=== PATIENT | female | born 1945 | race Caucasian/White ===

== ENCOUNTER → 2019-02-18 | Outpatient (CLI) | payer MEDICARE ==
[~2019-02-18] MED LIST: ALEN70TA3 PO; AMLO1CAP13 PO; ATOR10TA PO; HYDR12.58 PO; LEVO75TA PO
--- NOTE | 2019-02-18 12:02 | DIREP ---
PROCEDURE:XRAY SPINE LUMBAR 2-3 VWS COMPARISON:None. INDICATIONS:M54.5 LOW BACK PAIN TECHNIQUE:AP, lateral, and coned down lateral views of the lumbar spine are provided. FINDINGS: ALIGNMENT:Normal. VERTEBRAE:Preservation of vertebral body height. Bridging enthesophyte are seen involving the lower thoracic spine including T12 and L1. DISK SPACES:Normal. SPONDYLOLISTHESIS:None. SACROILIAC JOINTS:Mild to moderate left-sided degenerative SI joint changes. Mild degenerate facet changes of the lower lumbar spine.. OTHER:Normal. CONCLUSION:No fracture. Mild left-sided SI joint degenerative changes. Mild degenerate facet changes of the lower lumbar spine. There multiple large bridging enthesophyte of the lower thoracic spine and upper lumbar spine that may represent diffuse idiopathic skeletal hyperostosis. Dictated by: Chandan Yip MD on 02/18/2019 at 11:56 AM
--- NOTE | 2019-02-18 14:36 | DIREP ---
PROCEDURE:BONE DENSITY PERIPHERAL INDICATIONS:M81.0 AGE-RELATED OSTEOPOROSIS COMPARISON:[facility], , BONE DENSITY PERIPHERAL, 05/31/2016, 03:59 PM. FINDINGS: Femur Proximal RIGHT femur bone mineral density (BMD) (g/cm2): 0.795 T-score : -1.7 Proximal LEFT femur bone mineral density (BMD) (g/cm2): 0.751T-score: -2.0 Lumbar Lumbar bone mineral density (BMD) (g/cm2): 1.166T-score : -0.2 Imaging- No significant findings CONCLUSION: 1. Osteopenia. 2. Based on the [place] FRAX study, the patient's 10-year probability of a major osteoporotic fracture (clinical spine, forearm, hip or shoulder) is 15.6 %, and the 10-year probability of a hip fracture is 4.6 %. SUGGESTED RECOMMENDATIONS: Normal & Osteopenia:Consideration should be given to use of calcium supplementation, daily multiple vitamins and adequate exercise, as preventive measures against osteoporosis, if clinically indicated. Osteoporosis & Severe Osteoporosis:In addition to the above, consideration should be given to medical therapy against osteoporosis, if clinically indicated. Dictated by: Chandan Yip MD on 02/18/2019 at 02:21 PM
== END | disposition home or self-care (01) ==
LOC: RAD 09:03
PROVIDERS: ATTEND Nurse Practitioner Family
DX: M47.816 Spondylosis without myelopathy or radiculopathy, lumbar region (principal); M85.88 Other specified disorders of bone density and structure, other site; M81.0 Age-related osteoporosis without current pathological fracture
CPT/HCPCS: 72100; 77080